=== PATIENT | female | born 1985 | race Caucasian/White ===

== ENCOUNTER 2019-05-24 10:43 | Emergency (ER) | payer OTHER ==
[~2019-05-24] VITALS: Ht 160 cm; Wt 86.2 kg
--- NOTE | ~2019-05-24 | EKG ---
[place] [address] ELECTROCARDIOGRAM REPORT Name: TALITA IBARRA Room: 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
[2019-05-24] MEDS ORDERED: OMEPRAZOLE 20 M20 M1 PO (10:58)
[2019-05-24] MEDS ORDERED: VITAMIN B-121000 MC2 SUBLING (10:59)
[2019-05-24] MEDS ORDERED: ENBRACE HR SOF1 EACH PO (10:59)
[2019-05-24 11:53] LABS: ABSOLUTE BASOPHILS 0.1 thou/uL (0.0-0.2); ABSOLUTE EOSINOPHILS 0.1 thou/uL (0.0-0.7); ABSOLUTE LYMPHOCYTES 0.7 thou/uL (0.8-5.3); ABSOLUTE MONOCYTES 0.7 thou/uL (0.0-1.2); ABSOLUTE NEUTROPHILS 3.5 thou/uL (1.6-8.1); BASOPHILS 1.1 %; EOSINOPHILS 2.1 %; HEMATOCRIT 39.3 % (37.0-47.0); HEMOGLOBIN 13.6 gm/dL (12.0-15.0); LYMPHOCYTES 14.1 %; MCH 29.2 pg (26.0-34.0); MCHC 34.7 g/dL (28.0-37.0); MCV 84.1 fL (80.0-100.0); MONOCYTES 13.7 %; MPV 7.9 fl. (7.2-11.1); NUCLEATED RBCS 0 /100WBC; PLATELET COUNT* 273 thou/uL (150-400); RBC 4.67 mil/uL (4.20-5.00); RDW-CV 13.3 % (10.5-14.5); WBC 5.1 thou/uL (4.0-11.0)
[2019-05-24 12:04] LABS: CALCIUM 8.5 mg/dL (8.5-10.1); CREATININE 0.9 mg/dL (0.6-1.3)
[2019-05-24 12:08] LABS: ALBUMIN 4.4 g/dL (3.4-5.0); APTT 32.1 Seconds (25.0-31.3); INR 1.1; PROTIME 11.1 Seconds (9.20-11.50); TOTAL BILIRUBIN 0.4 mg/dL (<0.1-1.0); TOTAL PROTEIN 8.6 g/dL (6.4-8.2)
[2019-05-24] MEDS ORDERED: NORFLEX100 MG PO (13:56)
[2019-05-24 14:06] VITALS: BP 136/95
--- NOTE | 2019-05-26 09:55 | EKG ---
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
--- NOTE | 2019-05-26 15:08 | EKG ---
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
== END 2019-05-24 14:10 | disposition home or self-care (01) ==
LOC: M.ERS 10:43
PROVIDERS: Physician Assistant
DX: M54.2 Cervicalgia (principal); R07.89 Other chest pain; R42 Dizziness and giddiness; G43.909 Migraine, unspecified, not intractable, without status migrainosus